=== PATIENT | male | born 1985 | race Caucasian/White ===

== ENCOUNTER 2016-07-12 09:54 | Emergency (ER) | payer SELFPAY ==
[~2016-07-12 09:54] MED LIST: AMOXICILLIN PO; BACTRIM DS TABL1 TA1 PO; BLEPH-105 ML OP; CIPRO PO; FLEXERIL PO; FLEXERIL10 MG; FLEXERIL10 MG PO; FLOMAX0.4 M1 PO; FLOMAX0.4 MG PO; HYDROCODON-ACE1 EAC5 PO; IBUPROFEN; IBUPROFEN PO; LORTAB 5-325 M1 EACH; LORTAB 7.5-5001 TAB PO; NEURONTIN100 MG PO; NO MEDICATIONS; PEPCID AC20 M1 PO; PERCOCET PO; PHENERGAN PO; PHENERGAN25 MG PO; PREDNISONE PO; PSYCH MEDS; ROBITUSSIN-DM120 ML PO; SOMA PO; ULTRAM PO; VOLTAREN75 MG PO; ZOFRAN
== END 2016-07-12 10:24 | disposition home or self-care (01) ==
LOC: SED 09:54
DX: H10.9 Unspecified conjunctivitis (principal); F17.200 Nicotine dependence, unspecified, uncomplicated; Z87.442 Personal history of urinary calculi
CPT/HCPCS: 99283

== ENCOUNTER 2017-01-04 03:42 | Emergency (ER) | payer OTHER ==
[~2017-01-04] VITALS: Ht 165.1 cm; Wt 95.2 kg
--- NOTE | ~2017-01-04 | CT2 ---
[facility] A Service of [facility] RADIOLOGY TEXT RESULTS PATIENT: DAVIS SAWANT LOCATION: [facility] : 85 UNIT #: [id number] AGE: [address]: She Wells APRN SEX: M ORDER DR: [id number] [facility]. [place], [place] [address] [id number] MR#: [id number] Acc #: [id number] NAME: DAVIS SAWANT : 1985 SEX: M STUDY DATE/TIME: 01/04/2017 5:17 UNIT: [facility] ROOM: STUDY DESCRIPTION: CT Abd and Pelv W Cont Attending Physician: She Wells A.P.R.N. Ordering Physician: She Wells A.P.R.N. Primary Care Physician: Primary Care Physician No MEDICAL IMAGING REPORT This report is preliminary unless electronic signature is present EXAM CT abdomen and pelvis with contrast, 01/04/2017 HISTORY 31-year-old male in the ED complaining of left side abdomen pain and mid abdomen pain beginning 1-2 hours prior to arrival. TECHNIQUE CT examination of the abdomen and pelvis with IV contrast. GI contrast was not ordered. This CT exam was performed with one or more of the following radiation dose reduction techniques: automatic exposure control, adjustment of mA and/or kV according to patient size, and iterative reconstruction. FINDINGS ABDOMEN FINDINGS: 2 mm obstructing calculus in the left distal ureter at the UVJ causing mild left hydronephrosis. Both kidneys, both ureters and the urinary bladder are otherwise negative. Liver, pancreas and spleen are normal in size and appearance. No gallbladder distension or bile duct dilatation. Small bowel and colon are normal in caliber and appearance, as imaged. No evidence of acute appendicitis. Normal-caliber abdominal aorta. PELVIS FINDINGS: Urinary bladder, prostate and rectum are within normal limits. Limited lung base images show no active disease in the lower chest. IMPRESSION 1. Obstructing 2 mm calculus in the left distal ureter at the UVJ [facility] A Service of [facility] RADIOLOGY TEXT RESULTS PAT[facility]: [id number] [birth year] UNIT #: [id number] AGE: [address]: She Wells APRN SEX: M ORDER DR: causing mild left hydronephrosis. 2. The remainder of the examination is negative. Dictated by... Adrien Pratt M.D. THIS IS AN ELECTRONICALLY VERIFIED REPORT Adrien Pratt M.D. at 01/05/2017 6:02 AM LYNDON/cathy TD: 01/05/2017 04:46 JOB #: [id number] MEDICAL IMAGING REPORT Page 1 of 1 COPY
[2017-01-04 04:17] LABS: BASOPHIL# 0.1 X10e3 (0-0.3); BASOPHIL% 0.8 % (0-2.5); EOSINOPHIL# 0.2 X10e3 (0-0.7); EOSINOPHIL% 1.9 % (0.0-7.0); HEMATOCRIT 43.7 % (38.0-50.0); HEMOGLOBIN 14.9 gm/dL (13.0-16.0); LYMPHOCYTE# 4.6 X10e3 (1.0-3.5); LYMPHOCYTE% 40.7 % (17.0-45.0); MEAN CELL VOLUME 90.1 FL (83-96); MEAN CORPUSCULAR HEMOGLOBIN 30.8 PG (28-34); MEAN CORPUSCULAR HGB CONC 34.2 g/dL (30-36); MEAN PLATELET VOLUME 9.6 FL (6.5-11.5); MONOCYTE# 1.6 X10e3 (0-1.0); MONOCYTE% 14.1 % (3.0-12.0); NEUTROPHIL# 4.8 X10e3 (1.5-7.1); NEUTROPHIL% 42.5 % (40-75); PLATELET COUNT 245 X10e3 (140-420); RED BLOOD COUNT 4.85 X10e (3.90-5.60); RED CELL DISTRIBUTION WIDTH 13.7 % (11.0-15.5); WHITE BLOOD COUNT 11.3 X10e3 (4.0-10.5)
[2017-01-04 04:18] LABS: DIFF IND NO
[2017-01-04 04:44] LABS: ALBUMIN SERUM 4.4 g/dL (3.5-5.0); BILIRUBIN, DIRECT 0.1 mg/dL (0.0-0.2); BILIRUBIN,INDIRECT 0.5 mg/dL (0.0-0.9); BILIRUBIN,TOTAL 0.6 mg/dL (0.2-2.0); BUN/CREATININE RATIO 17.5; CREATININE SERUM 0.8 mg/dL (0.6-1.4); GLOM FILT RATE Estimated 119.1 mL/min (>60); POTASSIUM 3.1 mmol/L (3.5-5.1); PROTEIN TOTAL SERUM 7.3 g/dL (6.0-8.3)
== END 2017-01-04 06:53 | disposition home or self-care (01) ==
LOC: CED 03:42
PROVIDERS: Nurse Practitioner
DX: N13.2 Hydronephrosis with renal and ureteral calculous obstruction (principal)
CPT/HCPCS: 36415; 74177; 80048; 80076; 82150; 83690; 85025; 96361; 96374; 96375; 96376; 99284; J1885; J2270; J2405; Q9967